=== PATIENT | male | born 1935 | race Caucasian/White ===

== ENCOUNTER → 2016-07-01 | Outpatient (CLI) | payer OTHER ==
[~2016-07-01] MED LIST: ALPR0.5T99 PO; LEXA10TA PO; LIPI40TA PO; TAB-TAB PO
--- NOTE | 2016-07-09 12:23 | RSPPFT ---
DATE OF PROCEDURE: 07/01/16 COMMENTS: Spirometry shows FVC of 3.0 at 74% of predicted, FEV1 of 2.5 at 95%, FEV1/FVC ratio is normal. Flow is normal at FEF 25, FEF 50, FEF 75 and FEF 25-75. There is a mild response following bronchodilator treatment. Lung volumes show residual volume is increased. TLC is normal. Diffusion capacity is decreased. Flow volume loop indicates an obstructive pattern. IMPRESSION: 1. Mild small airways obstructive lung disease. 2. Mild response after bronchodilator treatment. 3. Lung volumes show hyperinflation. 4. Mild decrease in diffusion capacity.
== END ==
LOC: HRSP 12:00
PROVIDERS: ATTEND Internal Medicine
DX: J47.9 Bronchiectasis, uncomplicated (principal)
CPT/HCPCS: 94060; 94726; 94729